=== PATIENT | female | born 2000 | race Caucasian/White ===

== ENCOUNTER 2025-05-12 09:22 | Emergency (ER) | payer SELFPAY ==
[2025-05-12 09:38] VITALS: BP 136/83; PULSE 82; RESP 16; TEMP 36.8; O2SAT 100
[2025-05-12 10:00] LABS: EDUAAPPEAR Cloudy; EDUABILI Negative (Negative); EDUABLOOD Trace (Negative); EDUACOLOR1 Light/Pale; EDUAGLUCOSE Negative (Negative); EDUAKETONE Negative (Negative); EDUALEUKO Negative (Negative); EDUANITRATE Negative (Negative); EDUAPH 7.5; EDUAPROTEIN Negative (Negative); EDUASPGRAVITY 1.025; EDUAUROBILI 0.2
--- NOTE | 2025-05-12 10:25 | ED_ITS ---
HPI - Female Genitourinary General Chief complaint: Urogenital-Female Stated complaint: Abdominal Pain Time Seen by Provider: 05/12/25 10:17 Source: patient and RN notes reviewed Mode of arrival: ambulatory Limitations: no limitations History of Present Illness HPI Narrative: Patient presents today complaining of lower abdominal pressure radiating to the left flank, urinary frequency and urgency. She has tried aspirin without relief. Denies fever, but does report some night sweats over the past of days. Denies nausea, vomiting, known fever Related Data Allergies Allergy/AdvReac Type Severity Reaction Status Date / Time latex Allergy Rash Verified 05/12/25 09:36 PMFSH Comments At time of signature, I have reviewed and agree with nursing past medical, surgical, social and family history unless otherwise noted. Please see nursing chart for further information. There is no relevant family history pertinent to the presenting complaint Exam Narrative: GENERAL: Well-appearing, well-nourished, and in no acute distress. HEAD: Normocephalic, atraumatic. EYES: EOMI. No redness or drainage. Conjunctivae normal. ENT: Mucous membranes pink and moist. NECK: Normal AROM. CHEST: No respiratory distress. Clear to auscultation. HEART: Regular rate and rhythm. No murmur appreciated. ABDOMEN: Soft, nondistended, normal active bowel sounds.+ mild suprapubic tenderness.+ slight left CVAT MUSCULOSKELETAL: No bony tenderness. Bilateral lower lumbar tenderness. SKIN: Warm, dry, no rash. Capillary refill normal. Normal skin turgor. NEURO: No focal deficits. Alert and oriented x3. Gait steady. PSYCH: Normal affect. No signs of depression or anxiety. Course Course Level of Care: Express Care Visit Vital Signs Vital signs: Vital Signs Temperature 98.3 F 05/12/25 09:38 Pulse Rate 82 05/12/25 09:38 Respiratory Rate 16 05/12/25 09:38 Blood Pressure 136/83 05/12/25 09:38 Pulse Oximetry 100 05/12/25 09:38 Temperature 98.3 F 05/12/25 09:38 Pulse Rate 82 05/12/25 09:38 Respiratory Rate 16 05/12/25 09:38 Blood Pressure 136/83 05/12/25 09:38 Pulse Oximetry 100 05/12/25 09:38 Reviewed MDM - Female Genitourinary MDM Narrative Medical decision making narrative: Pleasant 24-year-old female patient presents with urinary frequency, urgency, suprapubic pressure, and left flank pain since yesterday. Aspirin has not provided relief. Urinalysis shows trace blood. Based on patient's symptoms and urinalysis, she will be treated with Augmentin for UTI. Recommend stopping aspirin and trying Tylenol or ibuprofen for discomfort as well as azo if needed. Urine culture pending. Vital signs stable. Strict ED precautions given. Differential Diagnosis Differential diagnosis: Likely urinary tract infection, cystitis and other (Pyelonephritis) Lab Data Attestation: I reviewed the patient's lab results. Labs: Lab Results 05/12/25 Range/Units 09:58 POC Urine Color Light/pale POC Urine Clarity Cloudy POC Urine pH 7.5 POC Ur Specif [place] 1.025 POC Urine Protein Negative (Negative) POC Ur Glucose (UA) Negative (Negative) POC Urine Ketones Negative (Negative) POC Urine Blood Trace (Negative) POC Urine Nitrite Negative (Negative) POC Urine Bilirubin Negative (Negative) POC Urine Urobilinogen 0.2 POC U Leukocyte Esteras Negative (Negative) Critical Care Time Critical Care Time Critical Care Time: No Discharge Plan Discharge Clinical Impression: Urinary tract infection Qualifiers: Urinary tract infection type: acute cystitis Hematuria presence: with hematuria Qualified Code(s): N30.01 - Acute cystitis with hematuria Patient Disposition: Home Condition: Stable Instructions: Antibiotic Form, Urinary Tract Infection in Women (ED) Additional Instructions: Your urine shows infection today. Take Augmentin as prescribed until gone. Your urine will be sent of for a culture to identify what type of bacteria is causing your infection. If the culture shows that your medication will not get rid of your infection, you will be notified and a new antibiotic will be called in for you. If your symptoms worsen to include fever, sweats, chills, nausea, vomiting, severe abdominal or back pain, please go to the ER for further evaluation. Take Tylenol or ibuprofen for your discomfort. Make sure your resting and staying hydrated. Your blood pressure was elevated above 120/80 today at Urgent Care. This puts you above the threshold for follow up. Please schedule a followup visit with your personal physician as soon as possible, for further evaluation and treatment. Even blood pressure exceeding 120/80 may indicate pre-hypertension. Patient Language: Somali Prescriptions: New amoxicillin-pot clavulanate 875-125 mg tablet 1 tablet PO Q12H 7 Days Qty: 14 0RF Follow-up/Referrals: PHYSICIAN,JAVASCRIPT SOFTWARE ENGINEER [Primary Care Provider] - Stand Alone Forms: Work/School Release IP Time of Disposition: 10:32
== END 2025-05-12 10:35 | disposition home or self-care (01) ==
PROVIDERS: Emergency Provider Nurse Practitioner
DX: N30.01 Acute cystitis with hematuria (principal)
CPT/HCPCS: 81003; 87086; 99203; G0463

== ENCOUNTER 2025-09-29 18:42 | Emergency (ER) | payer OTHER, SELFPAY ==
--- NOTE | 2025-09-29 18:48 | ED_ITS ---
HPI - Abdominal Pain General Chief Complaint: Abdominal Pain Stated Complaint: R side pain Time Seen by Provider: 09/29/25 18:55 Source: patient Mode of arrival: ambulatory Limitations: no limitations History of Present Illness HPI narrative: Elizabeth is a 24-year-old female patient presenting to the clinic today with complaint of right flank/low back pain and right-sided abdominal pain x1 week. She reports the pain as constant, sharp, and stabbing. Rates pain 7/10 currently. Last menstrual period was 1 month ago. History of kidney stones in the past. Has taken ibuprofen for her symptoms without much relief. Does report some slight burning with urination but no other UTI symptoms. No fevers or chills. Related Data Allergies Allergy/AdvReac Type Severity Reaction Status Date / Time latex Allergy Rash Verified 09/29/25 18:47 Review of Systems Review of Systems: Pertinent positives per HPI. Patient denies any fever, chills, rash, headache, visual changes, dizziness, cough, runny nose, sore throat, shortness of breath, chest pain, palpitations, nausea, vomiting, diarrhea, constipation PMFSH Comments At the time of my signature, I reviewed and agree with the nursing past medical, surgical, social, and family history. There is no relevant family history pertinent to the patient complaint. Exam Narrative: General: Well-developed, well nourished, acutely ill-appearing, pale Head: Normocephalic, atraumatic. Cardio: Regular rate and rhythm, s1 and s2 normal, no murmur appreciated. Resp: Clear to auscultation bilaterally, no rhonchi, rales, wheezing or rubs. Abdomen: Soft, pliable, bowel sounds present in all quadrants, right upper quadrant and right lower quadrant tender to palpation, right adnexa tenderness, no organomegly, positive for right CVAT tenderness. Course Course Emergency Course: Portions of this record may have been created with voice recognition software. Level of Care: Express Care Visit Vital Signs Vital signs: Vital signs reviewed Transfer Transfered to: [facility] Transportation: Other (private car) Transfer rationale: Right sided abdomen pain/right flank pain- higher level of care Accepting physician: Dr. Esteves Transfer comments: Private car MDM - Abdominal Pain MDM Narrative Medical decision making narrative: At the time of visit patient is resting comfortably on the exam table. Patient appears to be nontoxic. Complaint of right flank/low back pain and right-sided abdominal pain x1 week. She reports the pain as constant, sharp, and stabbing. Rates pain 7/10 currently. Last menstrual period was 1 month ago. History of kidney stones in the past. Has taken ibuprofen for her symptoms without much relief. Does report some slight burning with urination but no other UTI symptoms. No fevers or chills. On exam patient has soft, pliable, bowel sounds present in all quadrants, right upper quadrant and right lower quadrant tender to palpation, right adnexa tenderness, no organomegly, positive for right CVAT tenderness. Plan: Patient is having right-sided abdominal pain with right flank pain. Recommend transfer to the ER for further evaluation of her symptoms. Differentials include UTI, pyelonephritis, kidney stones, appendicitis, ectopic , ovarian cyst, ovarian mass, or ovarian torsion. Patient would like to go to [facility] emergency room. Discussed patient's case with Dr. Esteves at [facility] and he accepts patient for transfer. To go by private car. Differential Diagnosis Differential diagnosis: Likely abdominal pain, acute appendicitis, calculus of kidney, constipation, diverticulitis, endometriosis, gastroenteritis, pancreatitis, small bowel obstruction and other (Ectopic , ovarian cyst, ovarian torsion, ovarian mass) Discharge Plan Discharge Clinical Impression: Right sided abdominal pain, Acute right flank pain Patient Disposition: Acute Care Hospital Condition: Stable Patient Language: Arabic Follow-up/Referrals: PHYSICIAN,COMPOSITION BOARD PRESS OPERATOR [Primary Care Provider, Internal Medicine] Time of Disposition: 19:00 Quality NIHSS Nursing Documentation ED NIHSS nursing documentation: reviewed/agree
[2025-09-29 18:51] VITALS: BP 119/71; PULSE 104; RESP 18; TEMP 37.2; O2SAT 100
== END 2025-09-29 19:00 | disposition short-term general hospital (02) ==
PROVIDERS: Emergency Provider Nurse Practitioner Family
DX: R10.11 Right upper quadrant pain (principal); R10.31 Right lower quadrant pain; R10.A1 Flank pain, right side
CPT/HCPCS: 99212; G0463

== ENCOUNTER 2025-09-29 19:24 | Emergency (ER) | payer OTHER, SELFPAY ==
--- NOTE | ~2025-09-29 | CT_ITS ---
CT abdomen pelvis w con Clinical History: RLQ pain . Comparison: None Technique: Axial images lung bases to symphysis pubis 100 mL Omnipaque 350 Coronal, sagittal reformats CT images acquired with automatic exposure control for dose reduction DLP: 191 mGy-cm Findings: Lung bases: Clear. Visualized heart and pericardium: Unremarkable. Liver: Liver slightly enlarged, with steatosis. Gallbladder: Unremarkable. Spleen: Unremarkable. Pancreas: Unremarkable. Adrenal glands: Unremarkable. Kidneys: Right kidney- No hydronephrosis. No renal stones. Left kidney- No hydronephrosis. 4 mm stone. Distal esophagus/stomach: Unremarkable. Small bowel loops: Normal caliber and wall thickness. Colon: Normal caliber and wall thickness. Normal RLQ appendix. Nodes: No enlarged nodes. Peritoneum: No ascites. No free air. Urinary bladder: Unremarkable. Uterus: Unremarkable. Adnexa: Cystic focus left side. Small pelvic free fluid. Bones: No acute bony abnormality. Soft tissues: Unremarkable. Aorta: No aneurysm or dissection. IVC: Unremarkable. Main portal vein/SMV/splenic vein: Patent. IMPRESSION: 1. No acute abnormality. 2. Findings as above. Reviewed, dictated and finalized at location R. ERS COMPENSATION CLAIMS ANALYST
--- NOTE | ~2025-09-29 | US_ITS ---
EXAMINATION: US pelvic complete w TV, 09/30/2025 2:00 APPLICATION ENGINEER HISTORY: Right pelvic pain Comparison: None Technique: Davalos-scale and color Doppler images were obtained. Findings: Uterus: Uterus anteverted 6.6 x 2.5 x 4.2 cm. . Endometrium 3 mm. Right Ovary:Right ovary 2.5 x 1.5 x 2.1 cm, no adnexal mass, normal flow. Left Ovary: Left ovary 2.5 x 2.7 x 3.4 cm, simple appearing cystic lesion 3.4 x 3.1 cm. Free Fluid: None Impression: 1. Probable functional left ovarian cyst. Follow-up suggested in 6 weeks to assess resolution Reviewed, dictated and finalized at location P. ICATION ENGINEER Impression: 1. Probable functional left ovarian cyst. Follow-up suggested in 6 weeks to ass ess resolution
[2025-09-29 19:25] VITALS: BP 133/74; PULSE 94; RESP 18; TEMP 36.6; O2SAT 100
--- OUTSIDE RECORDS SUMMARY | 2025-09-29 19:26 | XMS_ITS | Clinical Summary ---
Author Organization [facility] [address] Address [address] [place] [id number] Care Team Providers Care Trim Installer Name Role Phone Unknown, Notinfile Primary Care Provider Unavail able Allergies No known active allergies Medications hydrOXYzine HCL 10 mg/5 mL (5 mL) solution 2 Active etonogestreL (Nexplanon) 68 mg implant Inject 68 implants by subcutaneous route. 1 Active Active Problems No known active problems Social History Tobacco Use Types Packs/Day Years Used Date Smoking Tobacco: Never Assessed Comments Unknown Sex and Gender Information Value Date Recorded Sex Assigned at Not on file Legal Sex Female 6:28 AM BRASS CHASER Gender Identity Female 11/19/2023 4:41 PM BRASS CHASER Sexual Orientation Bisexual 11/19/2023 4: 41 PM BRASS CHASER Last Filed Vital Signs Vital Sign Reading Time Taken Comments Blood Pressure 125/78 03/23/2024 12:17 PM CDT Pulse 67 03/23/2024 12:17 PM CDT Temperature 37.1 C (98.7 F) 03/23/2024 12:17 PM CDT Respiratory Rate 18 03/23/2024 12:17 PM CDT Oxygen Saturation 100% 03/23/2024 12:17 PM CDT Inhaled Oxygen Concentration - - Weight 56 kg (123 lb 8 oz) 03/23/2024 12:17 PM C DT Height 167.6 cm (5' 6) 03/23/2024 12:17 PM CDT Body Mass Index 19.93 03/23/2024 12:17 PM CDT Plan of Treatment Health Maintenance Due Date Last Done Comments Cervical Cancer Screening 2000 Depression Screening 2000 Hepatitis C Screening 2000 DTaP/Tdap/Td Vaccine (1 - Tdap) 2011 Varicella Vaccines (1 of 2 - 13+ 2-dose series) 2013 HPV Vaccines (1 - 3-dose series) 2015 Hepatitis B Screening 2018 Regular Well Visit/Exam 18-64 2018 Influenza Vaccine (#1) 2025 Pneumococcal vaccine <65 Aged Out No longer eligible based on patient's age to complete this topic Care Teams Trim Installer Relationship Specialty Start Date End Date Unknown, Notinfile PCP - General 11/19/23
[2025-09-29 20:08] LABS: BEDSIDEPREGUCG Negative (Negative)
[2025-09-29 20:11] LABS: Hematocrit 37.5 % (37.0-47.0); Hemoglobin 13.0 g/dL (12.0-15.0); Immature Granulocyte Percent A 0.3 % (0-0.5); Lymphocytes Absolute Auto 2.26 K/mm3 (0.9-3.2); Mean Corpuscular HGB Conc 34.7 g/dl (32-36); Mean Corpuscular Hemoglobin 34.2 pg (26-34); Mean Corpuscular Volume 98.7 fl (80-100); Nucleated Red Blood Cells Absolute Auto 0.000 K/mm3 (0.0-0.012); Nucleated Red Blood Cells Perc 0.0 % (0.0-0.2); Platelet Count Result 244 k/mm3 (150-375); Red Blood Count 3.80 M/mm3 (4.2-5.4); White Blood Count 10.4 K/mm3 (4.5-10.0)
[2025-09-29 20:12] LABS: Add Urine Microscopic? NO; Appearance Urine Clear (Clear); Glucose Urine UA Negative (Negative); Leukocyte Esterase Ur Negative LEU/UL (Negative); Nitrate Urine Negative (Negative); Specific Grav Ur 1.022 (1.001-1.035)
[2025-09-29 20:24] LABS: Alanine Aminotransferase 16 U/L (6-35); Albumin Level 4.6 g/dL (3.5-5.1); Alkaline Phosphatase 52 U/L (38-126); Anion Gap 9 mmol/L (4-12); Aspartate Amino Transferase 26 U/L (14-36); Bilirubin,Total 0.4 mg/dL (0.2-1.3); Blood Urea Nitrogen 11 mg/dL (7-17); Calcium 9.1 mg/dL (8.4-10.2); Carbon Dioxide 23 mmol/L (22-30); Chloride 104 mmol/L (98-107); Estimated CRCL calculation 105 ml/min; Estimated Glomerular Filt Rate > 60; Glucose 97 mg/dL (65-110); Lipase 46 U/L (23-300); Potassium 3.5 mmol/L (3.4-5.0); Sodium 136 mmol/L (137-145); Total Protein 7.5 g/dL (6.3-8.2)
[2025-09-29] MEDS: KETOROLAC 15 MG/ML VIAL (*BKC) IV PUSH (21:01)
[2025-09-29] MEDS: ONDANSETRON INJ 4 MG/2 ML VIAL IV PUSH (21:01)
--- NOTE | 2025-09-29 21:25 | ED_ITS ---
HPI - Abdominal Pain General Chief Complaint: Abdominal Pain <Manjula Bains MD - Last Filed: 09/29/25 22:07> Stated Complaint: abd pain <Manjula Bains MD - Last Filed: 09/29/25 22:07> Time Seen by Provider: 09/29/25 20:26 <Manjula Bains MD - Last Filed: 09/29/25 22:07> History of Present Illness HPI narrative: For last few weeks patient has had intermittent pain to her right lower quadrant, feels like it is going upper side, associated with some nausea, it got worse today so she came in. <Manjula Bains MD - Last Filed: 09/29/25 22:07> Related Data Allergies/Adverse Reactions: Allergies Allergy/AdvReac Type Severity Reaction Status Date / Time latex Allergy Rash Verified 09/29/25 18:47 <Manjula Bains MD - Last Filed: 09/29/25 22:07> Review of Systems 2 Review of Systems: All systems reviewed & are unremarkable except as noted in HPI and below <Manjula Bains MD - Last Filed: 09/29/25 22:07> Exam 2 Narrative: EXAMINATION OF ORGAN SYSTEMS/BODY AREAS: Constitutional: Vital signs per nursing GENERAL:[No acute distress, non-toxic appearing.] HEAD: Normal with no signs of head trauma. EYES: EOMI, conjunctiva normal ENT: Hearing grossly intact LUNGS: Nonlabored breathing. HEART: [Regular rate and rhythm] ABD: [Soft], slightly tender to palpation RLQ EXT: Normal range of motion SKIN: [No rashes or lesions.] NEURO: [Alert and oriented x 3. No gross focal sensory or strength deficits.] PSYCH: Normal affect <Manjula Bains MD - Last Filed: 09/29/25 22:07> Course Course Emergency Course: Patient care signed over by previous provider pending CT scan and likely discharge. CT shows no acute intra-abdominal abnormalities. No abdominal bowel obstruction, no inflammation. Normal appearing appendix. Nonobstructing left renal calculi, no hydronephrosis. Left adrenal 3.5 cm cyst. Patient's pain is localized to the right side and better after morphine. Vitals remained stable. Labs largely unremarkable. I went and re-evaluated the patient to try and discharge her at this time but she states that her pain has come back and points towards her lower right pelvis which is tender on palpation. She is still hemodynamically stable, no obvious pathology was visualized on the CT scan but at this time will order pelvic ultrasound to rule out ovarian pathology and she was given additional Toradol. I reviewed the ultrasound I do not appreciate any evidence of torsion. Confirmed by radiology read with no evidence of ovarian torsion. No adnexal abnormalities or any pelvic free fluid. Left ovarian cyst 3.4 cm but not correlating the patient's symptoms or site of pain. She remains hemodynamically stable, unremarkable CT and ultrasound and labs. Safe for discharge. Given Bentyl prescription and follow-up instructions with return precautions. < Dwayne Daniel MD - Last Filed: 09/30/25 06:00> Vital Signs Vital signs: Vital Signs Temperature 36.6 C 09/29/25 19:25 Pulse Rate 94 09/29/25 19:25 Respiratory Rate 18 09/29/25 19:25 Blood Pressure 133/74 09/29/25 19:25 Pulse Oximetry 100 09/29/25 19:25 Oxygen Delivery Room Air 09/29/25 19:25 Temperature 36.6 C 09/29/25 19:25 Pulse Rate 78 09/30/25 04:30 Respiratory Rate 20 09/30/25 04:30 Blood Pressure 114/76 09/30/25 04:30 Pulse Oximetry 99 09/30/25 04:30 Oxygen Delivery Room Air 09/29/25 19:25 <Manjula Bains MD - Last Filed: 09/29/25 22:07> Vital Signs Temperature 36.6 C 09/29/25 19:25 Pulse Rate 94 09/29/25 19:25 Respiratory Rate 18 09/29/25 19:25 Blood Pressure 133/74 09/29/25 19:25 Pulse Oximetry 100 09/29/25 19:25 Oxygen Delivery Room Air 09/29/25 19:25 Temperature 36.6 C 09/29/25 19:25 Pulse Rate 78 09/30/25 04:30 Respiratory Rate 20 09/30/25 04:30 Blood Pressure 114/76 09/30/25 04:30 Pulse Oximetry 99 09/30/25 04:30 Oxygen Delivery Room Air 09/29/25 19:25 <Dwayne Daniel MD - Last Filed: 09/30/25 06:00> MDM - Abdominal Pain MDM Narrative Medical decision making narrative: Patient presenting here with some right lower quadrant pain, nausea and vomiting. On exam she is well-appearing but does have some tenderness to the right lower quadrant, my differential includes possible ovarian cyst, possible appendicitis though she has no fevers or chills, also consider possible ovarian torsion however the pain is not severe, no vomiting here. Labs and CT ordered. Signed out to oncoming ER physician pending CT. <Manjula Bains MD - Last Filed: 09/29/25 22:07> Lab Data Result diagrams: 09/29/25 20:03 09/29/25 20:03 <Manjula Bains MD - Last Filed: 09/29/25 22:07> Labs: Lab Results 09/29/25 09/29/25 Range/Units 20:03 20:06 WBC 10.4 H (4.5-10.0) K/mm3 RBC 3.80 L (4.2-5.4) M/mm3 Hgb 13.0 (12.0-15.0) g/dL Hct 37.5 (37.0-47.0) % MCV 98.7 (80-100) fl MCH 34.2 H (26-34) pg MCHC 34.7 (32-36) g/dl RDW 12.1 (11.5-14.5) % Plt Count 244 (150-375) k/mm3 MPV 10.2 (7.4-10.4) fl Immature Gran % (Auto) 0.3 (0-0.5) % Neut % (Auto) 69.3 (45.5-73.1) % Lymph % (Auto) 21.7 (18.3-44.2) % Baldwin % (Auto) 8.1 (2.6-8.5) % Eos % (Auto) 0.1 (0-4.4) % Baso % (Auto) 0.5 (0.2-1.2) % Lymph # (Auto) 2.26 (0.9-3.2) K/mm3 Baldwin # (Auto) 0.8 H (0.1-0.6) K/mm3 Eos # (Auto) 0.0 (0-0.3) K/mm3 Baso # (Auto) 0.1 (0.0-0.1) K/mm3 Abs Immat Gran (auto) 0.03 (0.00-0.031) K/mm3 Absolute Neuts (auto) 7.2 H (1.3-6.7) K/mm3 Absolute Nucleated RBC 0.000 (0.0-0.012) K/mm3 Nucleated RBC % 0.0 (0.0-0.2) % Sodium 136 L (137-145) mmol/L Potassium 3.5 (3.4-5.0) mmol/L Chloride 104 (98-107) mmol/L Carbon Dioxide 23 (22-30) mmol/L Anion Gap 9 (4-12) mmol/L BUN 11 (7-17) mg/dL Creatinine 0.61 L (0.7-1.0) mg/dL Estim Creat Clear Calc 105 ml/min Estimated GFR > 60 (59 - ) Glucose 97 (65-110) mg/dL Calcium 9.1 (8.4-10.2) mg/dL Total Bilirubin 0.4 (0.2-1.3) mg/dL AST 26 (14-36) U/L ALT 16 (6-35) U/L Alkaline Phosphatase 52 (38-126) U/L Total Protein 7.5 (6.3-8.2) g/dL Albumin 4.6 (3.5-5.1) g/dL Lipase 46 (23-300) U/L Urine Color Yellow (Yellow) Urine Appearance Clear (Clear) Urine pH 7.5 (5.0-9.0) Ur Specific Agency 1.022 (1.001-1.035) Urine Protein Negative (Negative) mg/dL Urine Glucose (UA) Negative (Negative) mg/dL Urine Ketones 1+ H (Negative) mg/dL Ur Blood (Man) Negative (Negative) Urine Nitrate Negative (Negative) Urine Bilirubin Negative (Negative) Urine Urobilinogen 0.2 (<2.0) mg/dL Leukocyte Esterase Rfl Negative (Negative) CLAIRE/UL POC Urine HCG, Qual Negative (Negative) <Manjula Bains MD - Last Filed: 09/29/25 22:07> Lab Results 09/29/25 09/29/25 Range/Units 20:03 20:06 WBC 10.4 H (4.5-10.0) K/mm3 RBC 3.80 L (4.2-5.4) M/mm3 Hgb 13.0 (12.0-15.0) g/dL Hct 37.5 (37.0-47.0) % MCV 98.7 (80-100) fl MCH 34.2 H (26-34) pg MCHC 34.7 (32-36) g/dl RDW 12.1 (11.5-14.5) % Plt Count 244 (150-375) k/mm3 MPV 10.2 (7.4-10.4) fl Immature Gran % (Auto) 0.3 (0-0.5) % Neut % (Auto) 69.3 (45.5-73.1) % Lymph % (Auto) 21.7 (18.3-44.2) % Baldwin % (Auto) 8.1 (2.6-8.5) % Eos % (Auto) 0.1 (0-4.4) % Baso % (Auto) 0.5 (0.2-1.2) % Lymph # (Auto) 2.26 (0.9-3.2) K/mm3 Baldwin # (Auto) 0.8 H (0.1-0.6) K/mm3 Eos # (Auto) 0.0 (0-0.3) K/mm3 Baso # (Auto) 0.1 (0.0-0.1) K/mm3 Abs Immat Gran (auto) 0.03 (0.00-0.031) K/mm3 Absolute Neuts (auto) 7.2 H (1.3-6.7) K/mm3 Absolute Nucleated RBC 0.000 (0.0-0.012) K/mm3 Nucleated RBC % 0.0 (0.0-0.2) % Sodium 136 L (137-145) mmol/L Potassium 3.5 (3.4-5.0) mmol/L Chloride 104 (98-107) mmol/L Carbon Dioxide 23 (22-30) mmol/L Anion Gap 9 (4-12) mmol/L BUN 11 (7-17) mg/dL Creatinine 0.61 L (0.7-1.0) mg/dL Estim Creat Clear Calc 105 ml/min Estimated GFR > 60 (59 - ) Glucose 97 (65-110) mg/dL Calcium 9.1 (8.4-10.2) mg/dL Total Bilirubin 0.4 (0.2-1.3) mg/dL AST 26 (14-36) U/L ALT 16 (6-35) U/L Alkaline Phosphatase 52 (38-126) U/L Total Protein 7.5 (6.3-8.2) g/dL Albumin 4.6 (3.5-5.1) g/dL Lipase 46 (23-300) U/L Urine Color Yellow (Yellow) Urine Appearance Clear (Clear) Urine pH 7.5 (5.0-9.0) Ur Specific Agency 1.022 (1.001-1.035) Urine Protein Negative (Negative) mg/dL Urine Glucose (UA) Negative (Negative) mg/dL Urine Ketones 1+ H (Negative) mg/dL Ur Blood (Man) Negative (Negative) Urine Nitrate Negative (Negative) Urine Bilirubin Negative (Negative) Urine Urobilinogen 0.2 (<2.0) mg/dL Leukocyte Esterase Rfl Negative (Negative) CLAIRE/UL POC Urine HCG, Qual Negative (Negative) <Dwayne Daniel MD - Last Filed: 09/30/25 06:00> Discharge Plan Discharge Clinical Impression: Right sided abdominal pain <Manjula Bains MD - Last Filed: 09/29/25 22:07> Patient Disposition: Home <Manjula Bains MD - Last Filed: 09/29/25 22:07> Condition: Stable <Manjula Bains MD - Last Filed: 09/29/25 22:07> Instructions: Abdominal Pain (ED) <Manjula Bains MD - Last Filed: 09/29/25 22:07> Additional Instructions: Both your CT scan and ultrasound showed no evidence of any acute abnormalities in your ovaries, pelvis, appendix, GI tract. You do have a incidentally found left-sided ovarian cyst that is small and not causing any symptoms. No signs of any torsion, rupture or any free fluid. No signs of infection. No findings to explain your symptoms but no urgent or emergent concerns were found today and you are safe to go home. We have sent a prescription for Bentyl which can help with spasming pain in the abdomen and we encouraged to follow-up with regular primary care provider. Return with any emergent concerns, worsening pain or new issues. <Manjula Bains MD - Last Filed: 09/29/25 22:07> Patient Language: Portuguese <Manjula Bains MD - Last Filed: 09/29/25 22:07> Prescriptions: New dicyclomine 20 mg tablet 20 mg PO TID PRN (Reason: abdominal pain) Qty: 20 0RF <Manjula Bains MD - Last Filed: 09/29/25 22:07> Follow-up/Referrals: PHYSICIAN,JOURNALISM INTERNSHIP [Primary Care Provider, Internal Medicine] <Manjula Bains MD - Last Filed: 09/29/25 22:07> Time of Disposition: 04:22 <Manjula Bains MD - Last Filed: 09/29/25 22:07> 04:22 <Dwayne Daniel MD - Last Filed: 09/30/25 06:00>
[2025-09-29 23:42] VITALS: BP 124/72; PULSE 82; RESP 16; O2SAT 100
[2025-09-29] MEDS: MORPHINE SULFATE (*CRX) 4 MG/ML INJ IV PUSH (23:42)
[2025-09-30] VITALS (12 sets, daily range): BP systolic 102–128; BP diastolic 60–76; PULSE 68–88; RESP 16–20; O2SAT 97–100
[2025-09-30] MEDS: KETOROLAC 15 MG/ML VIAL (*BKC) IV PUSH (01:35)
== END 2025-09-30 04:45 | disposition home or self-care (01) ==
PROVIDERS: Registered Nurse; Emergency Provider Emergency Medicine
DX: R10.31 Right lower quadrant pain (principal)
CPT/HCPCS: 36415; 74177; 76830; 76856; 80053; 81003; 81025; 83690; 85025; 96374; 96375; 99284; J1885; J2270; J2405; Q9967